=== PATIENT | female | born 1985 | race Caucasian/White ===

== ENCOUNTER 2021-06-10 12:04 | Emergency (ER) | payer SELFPAY ==
[~2021-06-10] VITALS: Ht 167.6 cm; Wt 60.0 kg
[2021-06-10] MEDS ORDERED: IV NORMAL SALINE 1,000ML 1,000 ML IV ONE (12:30)
--- NOTE | 2021-06-10 12:36 | PHYS DOC ---
Adult General Chief Complaint Chief Complaint: ABDOMINAL PAIN HPI HPI Patient is a 5-year-old female patient presenting today complaining of her whole body hurting worse on the abdomen, symptoms began a couple minutes ago after using "bad meth" from a friend. Patient is a poor historian currently restless and writhing in the bed. Denies any chest pain, shortness of breath, nausea or vomiting. (MIGUELITO ELENA AIR MOVING TECHNICIAN) Review of Systems Review of Systems Constitutional: Denies fever or chills [] Eyes: Denies change in visual acuity, redness, or eye pain [] HENT: Denies nasal congestion or sore throat [] Respiratory: Denies cough or shortness of breath [] Cardiovascular: No additional information not addressed in HPI [] GI: Reports abdominal pain nausea, vomiting, bloody stools or diarrhea [] : Denies dysuria or hematuria [] Musculoskeletal: Reports body pain Integument: Denies rash or skin lesions [] Neurologic: Denies headache, focal weakness or sensory changes [] Psych: Reports methamphetamine use All other systems were reviewed and found to be within normal limits, except as documented in this note. (MIGUELITO ELENA AIR MOVING TECHNICIAN) Current Medications Current Medications Current Medications Medications (Trade) Dose Ordered Sig/Allie Start Time Stop Time Status Last Admin Dose Admin Sodium Chloride 1,000 ml @ 1,000 mls/hr 1X ONCE 06/10/21 12:30 06/10/21 13:29 (MIGUELITO ELENA AIR MOVING TECHNICIAN) Allergies Allergies Allergies Coded Allergies Type Severity Reaction Last Updated Verified No Known Drug Allergies 06/10/21 No (MIGUELITO ELENA APRN) Physical Exam Physical Exam Constitutional: Well developed, well nourished, no acute distress, non-toxic appearance. [] HENT: Normocephalic, atraumatic, bilateral external ears normal, oropharynx moist, no oral exudates, nose normal. [] Eyes: PERRLA, EOMI, conjunctiva normal, no discharge. [] Neck: Normal range of motion, no tenderness, supple, no stridor. [] Cardiovascular:Heart rate regular rhythm, no murmur [] Lungs & Thorax: Bilateral breath sounds clear to auscultation [] Abdomen: Bowel sounds normal, soft, no tenderness, no masses, no pulsatile masses. [] Skin: Warm, dry, no erythema, no rash. [] Back: No tenderness, no CVA tenderness. [] Extremities: No tenderness, no cyanosis, no clubbing, ROM intact, no edema. [] Neurologic: Alert and oriented X 3, normal motor function, normal sensory function, no focal deficits noted. [] Psychologic: Affect normal, judgement normal, mood normal. [] (MIGUELITO ELENA APRN) Current Patient Data Vital Signs Vital Signs Date Time Temp Pulse Resp B/P (MAP) Pulse Ox O2 Delivery O2 Flow Rate FiO2 06/10/21 12:04 110 30 101/58 (72) 100 Room Air (MIGUELITO ELENA APRN) EKG EKG [address] Arboleda sinus tachycardia heart rate 116 no STEMI [] (MIGUELITO ELENA APRN) Radiology/Procedures Radiology/Procedures [] (MIGUELITO ELENA APRN) Heart Score C/O Chest Pain: N/A Risk Factors: Risk Factors: DM, Current or recent (<one month) smoker, HTN, HLP, family history of CAD, obesity. Risk Scores: Risk Factors: DM, Current or recent (<one month) smoker, HTN, HLP, family history of CAD, obesity. (MIGUELITO ELENA APRN) Course & Med Decision Making Course & Med Decision Making Pertinent Labs and Imaging studies reviewed. (See chart for details) This is a 35-year-old female patient presenting to the ED today complaining of "whole body cramping worse on the abdomen, symptoms began after using meth. Patient was initially refusing care in the ED requesting pain medicines before we can do anything for her, informed her she is welcomed to stay and can receive non narcotic pain medicine as soon as she we get her tylenol and ibuprofen levels. She was insisting on IJ for IV with IV pain medicine. She eventually calmed down and allow the nurse to draw labs. Her CBC CMP with no acute findings, she refused to give us urine, EKG was noted for tachycardia which improved after IV fluids. She was discharged home. She refused help with drug use. (MIGUELITO ELENA APRN) Dragon Disclaimer Dragon Disclaimer This electronic medical record was generated, in whole or in part, using a voice recognition dictation system. (MIGUELITO ELENA APRN) Attending Co-Sign The patient was seen and interviewed as well as examined at the bedside. The chart was reviewed. The case was discussed. Agree with the plan of care. (ROSA ARBOLEDA DO) Departure Departure: Impression: Primary Impression: Methamphetamine use Additional Impression: Tachycardia Disposition: 01 HOME / SELF CARE / HOMELESS Condition: STABLE Referrals: PCP,NO (PCP) follow up with [facility] for [facility] use help Patient Instructions: Methamphetamine Abuse, Complications Additional Instructions: You were evaluated in the emergency room after using methamphetamine. We encourage you to get help from the [facility]. Consider not doing drugs. Problem Qualifiers MIGUELITO ELENA APRN Jun 10, 2021 12:36 ROSA ARBOLEDA DO Jun 11, 2021 14:33
--- NOTE | 2021-06-10 13:01 | EKG ---
[address] [address] Test Date: 2021-06-10 Test Time: 12:39:09 Pat Name: SUHA OCONNOR Department: Room: Gender: F [employer] Consultant: BENITEZ : 1985 Requested By: MIGUELITO ELENA Order Number: [id number] Reading MD: Measurements Intervals [place] Rate: 116 P: 51 NH: 108 QRS: 95 QRSD: 82 T: 65 QT: 258 QTc: 363 Interpretive Statements SINUS TACHYCARDIA RIGHTWARD AXIS OTHERWISE NORMAL ECG RI6.02 No previous ECG available for comparison
[2021-06-10 13:30] LABS: CALCIUM 8.3 mg/dL (8.5-10.1); CREATININE 1.1 mg/dL (0.6-1.0); GFR 56.9; POTASSIUM 3.4 mmol/L (3.5-5.1)
[2021-06-10 13:34] LABS: BASO % 0 % (0-3); EOS % 0 % (0-3); HEMATOCRIT 37.1 % (36.0-47.0); HEMOGLOBIN 12.3 g/dL (12.0-15.5); LYMPH # 0.1 x10^3/uL (1.0-4.8); LYMPH % 3 % (24-48); MEAN CORPUSCULAR HEMOGLOBIN 32 pg (25-35); MEAN CORPUSCULAR HGB CONC 33 g/dL (31-37); MEAN CORPUSCULAR VOLUME 97 fL (79-100); MONO % 1 % (0-9); NEUT # 4.9 x10^3uL (1.8-7.7); NEUT % 97 % (31-73); PLATELET COUNT 237 x10^3/uL (140-400); RED BLOOD COUNT 3.84 x10^6/uL (3.50-5.40); RED CELL DISTRIBUTION WIDTH 13.3 % (11.5-14.5)
[2021-06-10 13:36] LABS: ALBUMIN 3.2 g/dL (3.4-5.0); TOTAL BILIRUBIN 0.4 mg/dL (0.2-1.0); TOTAL PROTEIN 6.5 g/dL (6.4-8.2)
[2021-06-10 13:39] LABS: ACETAMIN < 2.0 mcg/mL (10-30); ETHANOL < 10 mg/dL (0-10); SALIC 2.4 mg/dL (2.8-20.0)
[2021-06-10 14:14] LABS: % BANDS 21 % (0-9); % SEGS 77 % (35-66)
[2021-06-10 14:15] LABS: % LYMPHS 2 % (24-48); PLT ESTIMATE ADEQUATE (ADEQUATE)
[2021-06-10 14:37] VITALS: BP 97/60
--- NOTE | 2021-06-10 15:14 | RAD ---
ACUTE ABDOMEN SERIES Indication: Abdomen Pain Date of service:06/10/2021 .Comparison: None available Procedure: PA chest and upright and supine abdomen views are obtained. Findings: Chest: Cardiac size and pulmonary vessels are normal. Pneumonia, pneumothorax or pleural effusion ar e not present. Haziness in both lower lobes is perhaps related to overlying breast shadows Abdomen: No evidence of free air is present. Gas pattern is normal . Impression: Normal Chest . Normal abdomen without obstruction, ileus or free air . If indicated, CT scan of the abdomen would be useful for further evaluation. Electronically signed by: Alida Mccabe MD (06/10/2021 3:12 PM) [facility]
== END 2021-06-10 14:56 | disposition home or self-care (01) ==
LOC: ER 12:04
DX: R00.0 Tachycardia, unspecified (principal); F15.10 Other stimulant abuse, uncomplicated
CPT/HCPCS: 36415; 74022; 80053; 80329; 82550; 84484; 85007; 85025; 93005; 96360; 99285; G0480; J7030